=== PATIENT | male | born 1965 | race Caucasian/White ===

== ENCOUNTER 2016-09-30 13:37 | Emergency (ER) | payer BC ==
[2016-09-30 15:48] VITALS: BP 146/59
[2016-09-30] MEDS ORDERED: Albuterol/Ipratropium NEB.SOL* Albuterol 2.5 MG/Ipratropium 0.5 MG 3 ML INH ONE (16:34)
--- NOTE | 2016-09-30 16:58 | RAD ---
INDICATION: Several weeks cough and wheezing. Shortness of breath. COMPARISON: March 21, 2007 TECHNIQUE: Dual energy PA and routine lateral views of the chest were obtained. REPORT: Clear lungs and pleural spaces. Negative for pneumothorax. The heart, pulmonary vasculature, and mediastinal contours are unremarkable. Unremarkable osseous structures and soft tissue contours. IMPRESSION: No evidence for acute intrathoracic disease.
--- NOTE | 2016-09-30 17:30 | UC ---
Throat Pain/Nasal [place] HPI - HPI Summary HPI Summary: PRESCRIBED BY DR DOMINGA GRAYSON ON 09/12/16, FOR STOMACH UPSET FOLLOWING [employer]. SINCE 09/23/16 HAS HAD PRODUCTIVE COUGH CONGESTION, SINUS PRESSURE, AND WHEEZING. NO FEVER. COUGH AND WHEEZING WORSENING, HAS TAKEN MUCINEX WITHOUT RELIEF. - History of Current Complaint Chief Complaint: UCRespiratory Stated Complaint: RESP COMPLAINT WITH COUGH Time Seen by Provider: 09/30/16 16:14 Hx Obtained From: Patient Onset/Duration: Gradual Onset, Lasting Weeks, Still Present Severity: Moderate Cough: Productive Associated Signs & Symptoms: Positive: Hoarseness, Sinus Discomfort, Nasal Discharge - Epiglottits Risk Factors Epiglottis Risk Factors: Negative - Allergies/Home Medications Allergies/Adverse Reactions: Allergies Allergy/AdvReac Type Severity Reaction Status Date / Time No Known Allergies Allergy Verified 09/30/16 15:48 Home Medications: Home Medications Melatonin 20 mg PO 09/30/16 [History] PMH/Surg Hx/FS Hx/Imm Hx Previously Healthy: Yes Endocrine History Of: Denies: Diabetes, Thyroid Disease Cardiovascular History Of: Reports: Hypertension - as a teen Denies: Cardiac Disorders Respiratory History Of: Denies: COPD, Asthma GI/ History Of: Denies: Ulcer - Surgical History Surgical History: Yes Surgery Procedure, Year, and Place: RT [facility], LT HIP RESURFACING. hemmoroids - Social History Occupation: Employed Full-time Lives: With Family Alcohol Use: Occasionally Substance Use Type: None Smoking Status (MU): Former Smoker Type: Cigarettes Amount Used/How Often: 1PPD Length of Time of Smoking/Using Tobacco: 10 yrs - Immunization History Most Recent Influenza Vaccination: denies Review of Systems Constitutional: Negative Skin: Negative Eyes: Negative ENT: Nasal Discharge Respiratory: Cough Cardiovascular: Negative Gastrointestinal: Negative Genitourinary: Negative Motor: Negative Neurovascular: Negative Musculoskeletal: Negative Neurological: Negative Psychological: Negative All Other Systems Reviewed And Are Negative: Yes Physical Exam Triage Information Reviewed: Yes Appearance: No Pain Distress, Well-Nourished, Ill-Appearing - MILDLY Vital Signs: Initial Vital Signs Temp 98.1 F 09/30/16 15:40 Pulse 75 09/30/16 15:40 Resp 16 09/30/16 15:40 BP 146/59 09/30/16 15:40 Pulse Ox 100 03/24/17 15:40 Vital Signs Reviewed: Yes Eye Exam: Normal ENT: Positive: Hearing grossly normal, Pharynx normal, TM bulging, TM dull Dental Exam: Normal Neck exam: Normal Neck: Positive: Supple, Nontender, No Lymphadenopathy Respiratory Exam: Normal Respiratory: Positive: Chest non-tender, Lungs clear, Normal breath sounds, No respiratory distress Cardiovascular Exam: Normal Cardiovascular: Positive: RRR, No Murmur, Pulses Normal Abdominal Exam: Normal Abdomen Description: Positive: Nontender, No Organomegaly Musculoskeletal Exam: Normal Musculoskeletal: Positive: Strength Intact Neurological Exam: Normal Psychological Exam: Normal Psychological: Positive: Normal Response To Family Skin Exam: Normal Throat Pain/Nasal Course/Dx - Differential Dx/Diagnosis Differential Diagnosis/HQI/PQRI: Pharyngitis, Sinusitis, Tonsillitis, URI Provider Diagnoses: SINUSITIS. BRONCHITIS WITH BRONCHOSPASM Discharge - Discharge Plan Condition: Stable Disposition: HOME Prescriptions: Benzonatate CAP* [Tessalon 100 MG CAP*] 100 mg PO TID PRN #15 cap PRN Reason: Cough DOXYcycline CAP(*) [DOXYcycline 100MG CAP(*)] 100 mg PO BID #20 cap Fluticasone NASAL SPRAY 50MCG* [Flonase NASAL SPRAY 50MCG*] 2 spray BOTH NARES DAILY #1 btl Patient Education Materials: Sinusitis (ED), Acute Bronchitis (ED), Bronchospasm (ED) Referrals: Jose Tuttle MD [Primary Care Provider] -
== END 2016-09-30 17:25 | disposition home or self-care (01) ==
LOC: UCEAST 13:37
DX: J32.9 Chronic sinusitis, unspecified (principal); J40 Bronchitis, not specified as acute or chronic; I10 Essential (primary) hypertension; Z87.891 Personal history of nicotine dependence
CPT/HCPCS: 71020; 99212; A9270-GY; G0463

== ENCOUNTER 2019-09-18 22:35 | Emergency (ER) | payer BC ==
--- NOTE | 2019-09-18 23:42 | ED ---
Laceration/Wound HPI - HPI Summary HPI Summary: Patient complains of abrasion to left forearm at 1 PM today.. Patient fell at the car wash while trying to wash his car with a pressurized hose, and pressurized water hit his arm. Patient went to work afterwards and presents to the ED 10 hours later. Denies loss of function, change in sensation. Tetanus status unknown. Denies any other pain, injury or symptoms. - History of Current Complaint Stated Complaint: ARM INJURY Time Seen by Provider: 09/18/19 23:41 Hx Obtained From: Patient Mechanism of Injury: Other Onset/Duration: Sudden Onset Aggravating: Nothing Alleviating: Nothing Onset Severity: Moderate Current Severity: Moderate Pain Intensity: 4 Pain Scale Used: 0-10 Numeric Associated Signs & Symptoms: Pain - Allergy/Home Medications Allergies/Adverse Reactions: Allergies Allergy/AdvReac Type Severity Reaction Status Date / Time No Known Allergies Allergy Verified 09/18/19 22:46 Home Medications: Home Medications Wellbutrin 150 mg PO DAILY 12/17/14 [History Confirmed 09/30/16] Benzonatate CAP* [Tessalon 100 MG CAP*] 100 mg PO TID PRN #15 cap 09/30/16 [Rx] DOXYcycline CAP(*) [DOXYcycline 100MG CAP(*)] 100 mg PO BID #20 cap 09/30/16 [Rx ] Fluticasone NASAL SPRAY 50MCG* [Flonase NASAL SPRAY 50MCG*] 2 spray BOTH NARES DAILY #1 btl 09/30/16 [Rx] Melatonin 20 mg PO 09/30/16 [History] Cephalexin CAP* [Keflex CAP*] 500 mg PO QID 5 Days #20 cap 09/19/19 [Rx] PMH/Surg Hx/FS Hx/Imm Hx Endocrine/Hematology History: Denies: Hx Diabetes, Hx Thyroid Disease Cardiovascular History: Reports: Hx Hypertension - as a teen Respiratory History: Denies: Hx Asthma, Hx Chronic Obstructive Pulmonary Disease (COPD) GI History: Denies: Hx Ulcer History: Denies: Hx Dialysis Musculoskeletal History: Denies: Hx Scoliosis Sensory History: Denies: Hx Eye Prosthesis Opthamlomology History: Denies: Hx Legally Blind EENT History: Denies: Hx Deafness Neurological History: Denies: Hx Headaches, Other Neuro Impairments/Disorders - Surgical History Surgery Procedure, Year, and Place: RT [facility], LT HIP RESURFACING. hemmoroids Infectious Disease History: No Infectious Disease History: Denies: Hx Clostridium Difficile, Hx Hepatitis, Hx Human Immunodeficiency Virus (HIV), Hx of Known/Suspected MRSA, Hx Shingles, Hx Tuberculosis, Hx Known/ Suspected VRE, Hx Known/Suspected VRSA, History Other Infectious Disease, Traveled Outside the [place] in Last 30 Days - Family History Known Family History: Positive: Non-Contributory - Social History Alcohol Use: Occasionally Substance Use Type: Reports: None Smoking Status (MU): Former Smoker Type: Cigarettes Amount Used/How Often: 1PPD Length of Time of Smoking/Using Tobacco: 10 yrs Review of Systems Constitutional: Negative Eyes: Negative ENT: Negative Cardiovascular: Negative Respiratory: Negative Gastrointestinal: Negative Genitourinary: Negative Musculoskeletal: Negative Skin: Other Neurological/Mental Status: Negative Psychological: Normal All Other Systems Reviewed And Are Negative: Yes Physical Exam - Summary Physical Exam Summary: V-shaped abrasion to dorsal surface of left forearm. 2 arms of the V measuring 7 cm x 1 cm x 0.25 cm deep PMS intact distally. No ecchymosis, erythema, deformity. Mild swelling to lateral aspect of left forearm. Parts Counterman strength normal. Triage Information Reviewed: Yes Vital Signs On Initial Exam: Initial Vitals Temp Pulse Resp BP Pulse Ox 99.2 F 85 16 161/94 97 09/18/19 22:42 09/18/19 22:42 09/18/19 22:42 09/18/19 22:42 09/18/19 22:42 Vital Signs Reviewed: Yes Appearance: Positive: Well-Appearing Skin: Positive: Warm Head/Face: Positive: Normal Head/Face Inspection Eyes: Positive: Normal Neck: Positive: Supple Respiratory/Lung Sounds: Positive: Clear to Auscultation Cardiovascular: Positive: Normal Abdomen Description: Positive: Nontender Musculoskeletal: Positive: Normal Neurological: Positive: Normal Psychiatric: Positive: Normal AVPU Assessment: Alert - Kempner Coma Scale Best Eye Response: 4 - Spontaneous Best Motor Response: 6 - Obeys Commands Best Verbal Response: 5 - Oriented Coma Scale Total: 15 Procedures - Sedation Patient Received Moderate/Deep Sedation with Procedure: No Diagnostics - Vital Signs Vital Signs Temp Pulse Resp BP Pulse Ox 09/18/19 22:42 99.2 F 85 16 161/94 97 - Laboratory Lab Statement: Any lab studies that have been ordered have been reviewed, and results considered in the medical decision making process. Laceration Repair Course/Dx - Course Course Of Treatment: Patient complains of abrasion to left forearm at 1 PM today.. Patient fell at the car wash while trying to wash his car with a pressurized hose, and pressurized water hit his arm. Patient went to work afterwards and presents to the ED 10 hours later. Denies loss of function, change in sensation. Tetanus status unknown. Denies any other pain, injury or symptoms. Vital signs within normal limits. Wound cleaned. No indication for suturing. - Clinical Impression Provider Diagnoses: Abrasion Discharge ED - Sign-Out/Discharge Documenting (check all that apply): Patient Departure - Discharge Plan Condition: Stable Disposition: HOME Prescriptions: Cephalexin CAP* [Keflex CAP*] 500 mg PO QID 5 Days #20 cap Patient Education Materials: Abrasion (ED) Referrals: Jose Tuttle MD [Primary Care Provider] - Additional Instructions: Take antibiotics as directed. You may wash wound with running water and soap. Do not submerge underwater. After washing, cover wound with antibiotic ointment and apply dressing to protect wound. Return to the ED for any new or worsening symptoms. - Billing Disposition and Condition Condition: STABLE Disposition: Home
[2019-09-19] MEDS ORDERED: Bacitracin OINTMENT* 0.5% 0.5 oz TUBE TOPICAL ONE (00:07)
[2019-09-19] MEDS ORDERED: Cephalexin CAP* 500 MG PO ONE (00:08)
[2019-09-19] MEDS ORDERED: Tetan/Diph/Pertus SYR(Tdap)* 0.5 ML SYR(BOOSTRIX) use SYR contains LATEX IM ONE (00:44)
[2019-09-19 00:48] VITALS: BP 165/73
== END 2019-09-19 00:40 | disposition home or self-care (01) ==
LOC: ED 22:35
DX: S50.812A Abrasion of left forearm, initial encounter (principal); W19.XXXA Unspecified fall, initial encounter; Y92.9 Unspecified place or not applicable; Z87.891 Personal history of nicotine dependence; I10 Essential (primary) hypertension; Z79.899 Other long term (current) drug therapy
CPT/HCPCS: 90471; 90715; 99282; A9270-GY